=== PATIENT | female | born 1965 | race Hispanic/Latino ===

== ENCOUNTER 2018-07-22 07:15 | Emergency (ER) | payer OTHER ==
[2018-07-22 07:58] LABS: APPEARANCE,URINE CLEAR (CLEAR); BILIRUBIN,URINE NEGATIVE (NEGATIVE); COLOR,URINE YELLOW (YELLOW); GLUCOSE, URINE (UA) NEGATIVE (NEGATIVE); KETONES,URINE NEGATIVE (NEGATIVE); LEUKOCYTE ESTERASE ,URINE SMALL (NEGATIVE); NITRATE,URINE NEGATIVE (NEGATIVE); OCCULT BLOOD,URINE SMALL (NEGATIVE); PROTEIN,URINE NEGATIVE (NEGATIVE); UROBILINOGEN,URINE 0.2 mg/dL (0.2-1.0)
[2018-07-22 08:07] LABS: BACTERIA,URINE Rare /HPF (None Seen); MUCUS,URINE Rare LPF (None Seen); RBC,URINE 0-1 /HPF (0-1); SQUAMOUS EPITHELIAL CELL,UR Rare /HPF (0-2)
[2018-07-22] MEDS ORDERED: ONDANSETRON HCL 4 MG/2 ML VIAL ONE (08:08)
[2018-07-22] MEDS ORDERED: MORPHINE SULFATE 4 MG/1ML SYG ONE (08:08)
[2018-07-22] MEDS ORDERED: KETOROLAC TROMETHAMINE 30MG/ML ONE (08:08)
[2018-07-22] MEDS ORDERED: SODIUM CHLORIDE 0.9% 1000ML 1,000 ML IV ONE (08:08)
[2018-07-22 09:24] LABS: POTASSIUM 3.9 mmol/L (3.5-5.1)
[2018-07-22 09:39] LABS: ALBUMIN 3.7 g/dL (3.5-5.0); BILIRUBIN,TOTAL 0.3 mg/dL (0.2-1.0); CREATININE 0.6 mg/dL (0.5-1.5); TOTAL PROTEIN, SERUM 7.9 g/dL (6.0-8.3)
== END 2018-07-22 10:39 | disposition home or self-care (01) ==
LOC: EDH 07:15
DX: M62.830 Muscle spasm of back (principal); M54.9 Dorsalgia, unspecified; Z88.1 Allergy status to other antibiotic agents
CPT/HCPCS: 36415; 71045; 74176; 80053; 81001; 96361; 96374; 96375; 99284; J1885; J2270; J2405; J7030

== ENCOUNTER 2022-02-28 16:25 | Inpatient (IN) | payer OTHER ==
[~2022-02-28] VITALS: Ht 165.1 cm; Wt 94.9 kg
[2022-02-28 04:00] VITALS: BP 142/69
[2022-02-28 16:55] LABS: BASOPHILS % (AUTO) 0.3 % (0.0-5.0); EOSINOPHILS % (AUTO) 1.1 % (0.0-8.0); LYMPHOCYTES % (AUTO) 23.8 % (21.0-51.0); MEAN CORPUSCULAR HEMOGLOBIN 29.2 pg (27.0-33.0); MEAN CORPUSCULAR HGB CONC 33.2 g/dL (32.0-36.0); MONOCYTES % (AUTO) 3.9 % (3.0-13.0); NEUTROPHILS % (AUTO) 70.5 % (40.0-77.0); PLATELET COUNT (AUTO) 307 K/uL (130-400); RED BLOOD CELL COUNT(AUTO) 4.32 MIL/uL (4.00-5.50); RED CELL DISTRIBUTION WIDTH 13.3 % (11.0-15.5); WHITE BLOOD COUNT (AUTO) 13.3 K/uL (4.8-10.8)
[2022-02-28 17:04] LABS: CREATININE 0.9 mg/dL (0.5-1.5); POTASSIUM 3.2 mmol/L (3.5-5.1)
[2022-02-28 17:17] LABS: ALBUMIN 3.9 g/dL (3.5-5.0); TOTAL PROTEIN, SERUM 8.2 g/dL (6.0-8.3)
[2022-02-28] MEDS ORDERED: KETOROLAC 30MG VIAL (30MG/ML) IVP ONE (17:30)
[2022-02-28 17:53] LABS: APPEARANCE,URINE CLEAR (CLEAR); BILIRUBIN,URINE NEGATIVE (NEGATIVE); COLOR,URINE YELLOW (YELLOW); GLUCOSE, URINE (UA) NEGATIVE (NEGATIVE); KETONES,URINE NEGATIVE (NEGATIVE); LEUKOCYTE ESTERASE ,URINE NEGATIVE (NEGATIVE); NITRATE,URINE NEGATIVE (NEGATIVE); OCCULT BLOOD,URINE TRACE-INTACT (NEGATIVE); PH,URINE 5.5 (5.0-8.0); PROTEIN,URINE NEGATIVE (NEGATIVE); UROBILINOGEN,URINE 0.2 mg/dL (0.2-1.0)
[2022-02-28 18:27] LABS: BACTERIA,URINE Few /HPF (None Seen); MUCUS,URINE Few LPF (None Seen); RBC,URINE 0-1 /HPF (0-1); SQUAMOUS EPITHELIAL CELL,UR Few /HPF (0-2); WBC,URINE 0-1 /HPF (0-1)
[2022-02-28] MEDS ORDERED: MORPHINE 2 MG SYG IV PRN (19:30)
[2022-02-28] MEDS ORDERED: NITROGLYCERIN 0.4 MG SL TAB SL PRN (19:30)
[2022-02-28] MEDS ORDERED: ACETAMINOPHEN 325 MG TAB PO PRN (19:30)
[2022-02-28] MEDS: 0.9%NACL 1000ML 1,000 ML IV SCH (20:13)
[2022-02-28 20:35] LABS: INR 0.94 (0.85-1.15); PROTHROMBIN TIME 10.3 SEC (9.6-11.6)
[2022-02-28 20:37] LABS: PARTIAL THROMBOPLASTIN TIME 26.6 SEC (26.3-35.5)
[2022-02-28 20:41] LABS: HEMOGLOBIN A1C 7.8 % (4.0-6.0)
[2022-02-28] MEDS ORDERED: ERGOCALCIFEROL (VITAMIN D2) 50,000 UNIT CAPSULE PO ONE (21:30)
[2022-02-28] MEDS ORDERED: KCL 20 MEQ ERTAB PO ONE (21:30)
[2022-02-28] MEDS: FAMOTIDINE 20MG TAB PO SCH (22:03)
[2022-02-28 22:48] LABS: LACTATE DEHYDROGENASE 365 U/L (81-234)
[2022-02-28 22:52] LABS: CREATINE KINASE, TOTAL 1092 U/L (21-232)
[2022-02-28] MEDS: MORPHINE 4 MG SYG IV PRN (23:47)
[2022-02-28 23:55] VITALS: BP 159/85
[2022-03-01] VITALS (8 sets, daily range): BP systolic 134–177; BP diastolic 47–107
[2022-03-01] MEDS ORDERED: 0.9%NACL 1000ML 1,000 ML IV ONE
[2022-03-01 04:15] LABS: BASOPHILS % (AUTO) 0.3 % (0.0-5.0); EOSINOPHILS % (AUTO) 1.3 % (0.0-8.0); HEMATOCRIT 34.2 % (36-48); MEAN CORPUSCULAR HEMOGLOBIN 29.1 pg (27.0-33.0); MEAN CORPUSCULAR HGB CONC 32.7 g/dL (32.0-36.0); MEAN CORPUSCULAR VOLUME 88.8 fL (79-99); MONOCYTES % (AUTO) 5.8 % (3.0-13.0); NEUTROPHILS % (AUTO) 65.2 % (40.0-77.0); PLATELET COUNT (AUTO) 265 K/uL (130-400); RED BLOOD CELL COUNT(AUTO) 3.85 MIL/uL (4.00-5.50); RED CELL DISTRIBUTION WIDTH 13.6 % (11.0-15.5); WHITE BLOOD COUNT (AUTO) 10.9 K/uL (4.8-10.8)
[2022-03-01 04:44] LABS: CREATININE 0.6 mg/dL (0.5-1.5); MAGNESIUM 2.1 mg/dL (1.80-2.40); POTASSIUM 4.1 mmol/L (3.5-5.1); TOTAL PROTEIN, SERUM 6.6 g/dL (6.0-8.3)
[2022-03-01] MEDS: 0.9%NACL 1000ML 1,000 ML IV SCH ×2 (05:35→16:20)
[2022-03-01] MEDS: ZINC SULFATE 220 CAPSULE PO SCH (08:30)
[2022-03-01] MEDS: FAMOTIDINE 20MG TAB PO SCH ×2 (08:30→22:33)
[2022-03-01] MEDS: LACTATED RINGERS 1000ML 1,000 ML IV SCH ×3 (08:31→22:33)
[2022-03-01] MEDS: ENOXAPARIN SODIUM 40 MG/0.4 ML SYRINGE SQ SCH (08:31)
[2022-03-01] MEDS: ONDANSETRON 4MG INJ IV PRN (22:33)
[2022-03-01] MEDS: MORPHINE 4 MG SYG IV PRN (22:34)
[2022-03-01] MEDS ORDERED: NALOXONE HCL 0.4 MG/1 ML ML ONE (22:43)
[2022-03-01] MEDS ORDERED: KETOROLAC 15MG/ML VIAL (15MG/ML) IV ONE (23:30)
[2022-03-02] VITALS (23 sets, daily range): BP systolic 110–150; BP diastolic 56–106
[2022-03-02] MEDS: LACTATED RINGERS 1000ML 1,000 ML IV SCH ×4 (04:14→23:34)
[2022-03-02 05:32] LABS: BASOPHILS % (AUTO) 0.5 % (0.0-5.0); EOSINOPHILS % (AUTO) 3.5 % (0.0-8.0); HEMATOCRIT 34.8 % (36-48); LYMPHOCYTES % (AUTO) 43.4 % (21.0-51.0); MEAN CORPUSCULAR HEMOGLOBIN 29.2 pg (27.0-33.0); MEAN CORPUSCULAR HGB CONC 32.5 g/dL (32.0-36.0); MEAN CORPUSCULAR VOLUME 89.9 fL (79-99); NEUTROPHILS % (AUTO) 46.3 % (40.0-77.0); PLATELET COUNT (AUTO) 246 K/uL (130-400); RED BLOOD CELL COUNT(AUTO) 3.87 MIL/uL (4.00-5.50); RED CELL DISTRIBUTION WIDTH 13.5 % (11.0-15.5); WHITE BLOOD COUNT (AUTO) 6.5 K/uL (4.8-10.8)
[2022-03-02 05:56] LABS: CREATININE 0.6 mg/dL (0.5-1.5); POTASSIUM 3.8 mmol/L (3.5-5.1); TOTAL PROTEIN, SERUM 6.8 g/dL (6.0-8.3)
[2022-03-02] MEDS: ENOXAPARIN SODIUM 40 MG/0.4 ML SYRINGE SQ SCH (09:00)
[2022-03-02] MEDS: ZINC SULFATE 220 CAPSULE PO SCH (09:20)
[2022-03-02] MEDS: FAMOTIDINE 20MG TAB PO SCH ×2 (09:20→21:00)
[2022-03-02] MEDS ORDERED: IOHEXOL 350 MG/ML 100ML INFUS..BTL IV ONE (13:43)
[2022-03-02] MEDS: ACETAMINOPHEN 325 MG TAB PO PRN (16:10)
[2022-03-02] MEDS ORDERED: BUPIVACAINE/PF 0.5% 30ML VIAL ONE (18:24)
[2022-03-02] MEDS ORDERED: SUCCINYLCHOLINE 200MG/10ML SYR ONE (18:29)
[2022-03-02] MEDS ORDERED: ROCURONIUM 10MG/1ML SYR 10 MG/ML ML ONE (18:30)
[2022-03-02] MEDS ORDERED: MIDAZOLAM HCL 1 MG/ML 2ML VIAL ONE (18:30)
[2022-03-02] MEDS ORDERED: FENTANYL CITRATE PF 50 MCG/1 ML 5ML AMP IV ONE (18:30)
[2022-03-02] MEDS ORDERED: PROPOFOL 10 MG/ML 20ML VIAL IV ONE (18:30)
[2022-03-02] MEDS ORDERED: CLINDAMYCIN IVPB 600MG/50ML 50 ML IV ONE (18:31)
[2022-03-02] MEDS ORDERED: ONDANSETRON 4MG INJ ONE (18:31)
[2022-03-02] MEDS ORDERED: NEOSTIGMINE 5MG/5ML SYR IV ONE (19:32)
[2022-03-02] MEDS ORDERED: KETOROLAC 30MG VIAL (30MG/ML) ONE (19:32)
[2022-03-02] MEDS ORDERED: GLYCOPYRROLATE 1 MG/5 ML SYRINGE ONE (19:32)
[2022-03-02] MEDS ORDERED: MEPERIDINE-PF 25 MG/ML SYG ONE (20:17)
[2022-03-03] VITALS (9 sets, daily range): BP systolic 109–137; BP diastolic 56–78
[2022-03-03] MEDS: CLINDAMYCIN IVPB 600MG/50ML 50 ML IV SCH ×2 (01:09→08:36)
[2022-03-03 05:08] LABS: BASOPHILS % (AUTO) 0.1 % (0.0-5.0); HEMATOCRIT 35.4 % (36-48); LYMPHOCYTES % (AUTO) 11.6 % (21.0-51.0); MEAN CORPUSCULAR HGB CONC 32.8 g/dL (32.0-36.0); MEAN CORPUSCULAR VOLUME 88.5 fL (79-99); NEUTROPHILS % (AUTO) 86.9 % (40.0-77.0); PLATELET COUNT (AUTO) 296 K/uL (130-400); RED CELL DISTRIBUTION WIDTH 13.2 % (11.0-15.5); WHITE BLOOD COUNT (AUTO) 11.4 K/uL (4.8-10.8)
[2022-03-03 05:37] LABS: ALBUMIN 3.1 g/dL (3.5-5.0); CREATININE 0.6 mg/dL (0.5-1.5); POTASSIUM 3.9 mmol/L (3.5-5.1); TOTAL PROTEIN, SERUM 7.3 g/dL (6.0-8.3)
[2022-03-03] MEDS: LACTATED RINGERS 1000ML 1,000 ML IV SCH (05:43)
[2022-03-03] MEDS: ZINC SULFATE 220 CAPSULE PO SCH (08:14)
[2022-03-03] MEDS: ENOXAPARIN SODIUM 40 MG/0.4 ML SYRINGE SQ SCH (08:14)
[2022-03-03] MEDS: FAMOTIDINE 20MG TAB PO SCH (08:14)
[2022-03-03] MEDS: ACETAMINOPHEN 325 MG TAB PO PRN ×2 (08:15→16:28)
[2022-03-03] MEDS: ONDANSETRON 4MG INJ IV PRN (08:26)
== END 2022-03-03 17:45 | disposition home or self-care (01) | DRG 417 ==
LOC: EDH 16:25 → EDHIP 16:26 → 4CH 23:34
PROVIDERS: ADMIT Internal Medicine; ATTEND Internal Medicine
PROC: 0FT44ZZ Resection of Gallbladder, Percutaneous Endoscopic Approach (ICD-10-PCS; principal; 2022-03-02 18:52)
DX: K80.62 Calculus of gallbladder and bile duct with acute cholecystitis without obstruction (principal); U07.1 COVID-19; R65.10 Systemic inflammatory response syndrome (SIRS) of non-infectious origin without acute organ dysfunction; E66.9 Obesity, unspecified; Z68.34 Body mass index [BMI] 34.0-34.9, adult
CPT/HCPCS: 36415; 71045; 74177; 74181; 76705; 78226; 80053; 80061; 81001; 82550; 82728; 82948; 83036; 83615; 83690; 83735; 84145; 84484; 85025; 85378; 85610; 85730; 87635; 93005; A9537; G0378; J0330; J1650; J1885; J2175; J2250; J2270; J2310; J2405; J2704; J2710; J3010; J3490; J7030; J7120; Q9967

== ENCOUNTER 2023-01-15 21:15 | Emergency (ER) | payer OTHER ==
[2023-01-15 22:57] LABS: BASOPHILS % (AUTO) 0.5 % (0.0-5.0); EOSINOPHILS % (AUTO) 2.3 % (0.0-8.0); HEMATOCRIT 35.8 % (36-48); LYMPHOCYTES % (AUTO) 37.3 % (21.0-51.0); MEAN CORPUSCULAR HEMOGLOBIN 29.2 pg (27.0-33.0); MEAN CORPUSCULAR HGB CONC 32.7 g/dL (32.0-36.0); MEAN CORPUSCULAR VOLUME 89.3 fL (79-99); MONOCYTES % (AUTO) 5.6 % (3.0-13.0); PLATELET COUNT (AUTO) 266 K/uL (130-400); RED BLOOD CELL COUNT(AUTO) 4.01 MIL/uL (4.00-5.50); RED CELL DISTRIBUTION WIDTH 13.5 % (11.0-15.5); WHITE BLOOD COUNT (AUTO) 9.8 K/uL (4.8-10.8)
[2023-01-15 23:07] LABS: CREATININE 0.8 mg/dL (0.5-1.5); POTASSIUM 3.7 mmol/L (3.5-5.1)
[2023-01-15 23:11] LABS: ALBUMIN 3.2 g/dL (3.5-5.0); TOTAL PROTEIN, SERUM 7.1 g/dL (6.0-8.3)
[2023-01-15] MEDS ORDERED: KETOROLAC 30MG VIAL (30MG/ML) IVP ONE (23:30)
[2023-01-15] MEDS ORDERED: METOCLOPRAMIDE 10 MG/2 ML VIAL IVP ONE (23:30)
[2023-01-15] MEDS ORDERED: FAMOTIDINE 20MG VIAL IV ONE (23:30)
[2023-01-15] MEDS ORDERED: LABETALOL 20MG VIAL IV ONE (23:30)
[2023-01-15 23:49] LABS: MAGNESIUM 2.1 mg/dL (1.80-2.40); THYROID STIMULATING HORMONE 2.65 uIU/mL (0.36-3.74)
[2023-01-16 00:31] LABS: APPEARANCE,URINE CLEAR (CLEAR); BILIRUBIN,URINE NEGATIVE (NEGATIVE); GLUCOSE, URINE (UA) 150 mg/dL (NEGATIVE); KETONES,URINE NEGATIVE (NEGATIVE); LEUKOCYTE ESTERASE ,URINE NEGATIVE Leu/uL (NEGATIVE); NITRATE,URINE NEGATIVE (NEGATIVE); OCCULT BLOOD,URINE NEGATIVE (NEGATIVE); PH,URINE 5.5 (5.0-8.0); PROTEIN,URINE NEGATIVE (NEGATIVE); UROBILINOGEN,URINE 0.2 mg/dL (0.2-1.0)
[2023-01-16 00:34] LABS: COLOR,URINE Light-Yellow (YELLOW)
[2023-01-16 00:49] LABS: BACTERIA,URINE RARE /HPF (None Seen); RBC,URINE 0-1 /HPF (0-1); SQUAMOUS EPITHELIAL CELL,UR RARE /HPF (0-2); WBC,URINE 0-1 /HPF (0-1)
[2023-01-16] MEDS ORDERED: LISI10TA24 PO (02:07)
[2023-01-16] MEDS ORDERED: METO-296 PO (02:07)
[2023-01-16 02:20] VITALS: BP 145/80
== END 2023-01-16 02:27 | disposition home or self-care (01) ==
LOC: EDH 21:15
DX: G43.909 Migraine, unspecified, not intractable, without status migrainosus (principal); I10 Essential (primary) hypertension; R53.82 Chronic fatigue, unspecified; Z20.822 Contact with and (suspected) exposure to COVID-19; Z88.1 Allergy status to other antibiotic agents; Z88.5 Allergy status to narcotic agent
CPT/HCPCS: 99285; 96374; 71045; 96375; 87635; 84443; 82550 ×2; 83735; 84484; 80053; 85025; 87804 ×2; 81001; 36415; 93005; C9803; J3490 ×2; J1885; J2765